=== PATIENT | female | born 1960 | race Caucasian/White ===

== ENCOUNTER → 2019-05-10 | Outpatient (CLI) | payer OTHER | LOC: RAD 10:21 | DX: Z12.31 Encounter for screening mammogram for malignant neoplasm of breast (principal) ==

== ENCOUNTER → 2019-11-17 | Outpatient (CLI) | payer OTHER | LOC: CAT 08:52 → EDSTATUS 14:16 | DX: R55 Syncope and collapse (principal) ==

== ENCOUNTER → 2019-12-05 | Outpatient (CLI) | payer OTHER | LOC: MRI 10:47 | DX: R55 Syncope and collapse (principal) ==

== ENCOUNTER → 2020-01-09 | Outpatient (CLI) | payer OTHER ==
[2020-01-09 13:23] LABS: CHOLESTEROL 106 mg/dL (<200); HDL CHOLESTEROL 39 mg/dL (>40); LDL CHOLESTEROL 56 mg/dL (<100); TC:HDL 2.7 Ratio (Not establshd); TRIGLYCERIDE 58 mg/dL (<150); VLDL 12 mg/dL (<40)
== END ==
LOC: LAB 11:06
PROVIDERS: Family Medicine
DX: E03.4 Atrophy of thyroid (acquired) (principal)

== ENCOUNTER → 2020-01-12 | Outpatient (CLI) | payer OTHER | LOC: SJCVCIMAG 09:01 | DX: I07.1 Rheumatic tricuspid insufficiency (principal); R55 Syncope and collapse; E78.5 Hyperlipidemia, unspecified; E03.9 Hypothyroidism, unspecified ==

== ENCOUNTER → 2020-03-01 | Outpatient (CLI) | payer OTHER ==
[2020-03-01 11:46] LABS: ALBUMIN 4.3 g/dL (3.4-5.0); ANION GAP 5 mmol/L (7-16); BUN 13 mg/dL (7-18); CALCIUM 9.6 mg/dL (8.5-10.1); CHLORIDE 101 mmol/L (98-107); CHOLESTEROL 165 mg/dL (<200); CO2 32 mmol/L (21-32); CREATININE 0.9 mg/dL (0.6-1.0); GLUCOSE 101 mg/dL (74-106); HDL CHOLESTEROL 45 mg/dL (>40); LDL CHOLESTEROL 101 mg/dL (<100); POTASSIUM 4.3 mmol/L (3.5-5.1); SGOT 26 U/L (15-37); SGPT 45 U/L (30-65); SODIUM 138 mmol/L (136-145); TC:HDL 3.7 Ratio (Not establshd); TOTAL BILIRUBIN 0.5 mg/dL (0.2-1.0); TOTAL PROTEIN 7.5 g/dL (6.4-8.2); TRIGLYCERIDE 95 mg/dL (<150); VLDL 19 mg/dL (<40)
[2020-03-01 11:47] LABS: SERUM ASSESSMENT Clear
== END ==
LOC: LAB 02-01 12:28
PROVIDERS: ATTEND Family Medicine
DX: E78.2 Mixed hyperlipidemia (principal); E03.4 Atrophy of thyroid (acquired)

== ENCOUNTER → 2020-03-18 | Outpatient (CLI) | payer OTHER | LOC: LAB 10:46 | PROVIDERS: ATTEND Family Medicine | DX: U07.1 COVID-19 (principal) ==

== ENCOUNTER → 2020-04-12 | Outpatient (CLI) | payer OTHER ==
[2020-04-12 09:58] LABS: ANION GAP 6 mmol/L (7-16); BUN 18 mg/dL (7-18); CALCIUM 9.2 mg/dL (8.5-10.1); CHLORIDE 103 mmol/L (98-107); CHOLESTEROL 205 mg/dL (<200); CO2 30 mmol/L (21-32); CREATININE 0.9 mg/dL (0.6-1.0); GLUCOSE 103 mg/dL (74-106); HDL CHOLESTEROL 48 mg/dL (>40); LDL CHOLESTEROL 145 mg/dL (<100); POTASSIUM 4.2 mmol/L (3.5-5.1); SGOT 49 U/L (15-37); SGPT 82 U/L (30-65); SODIUM 139 mmol/L (136-145); TC:HDL 4.3 Ratio (Not establshd); TOTAL BILIRUBIN 0.4 mg/dL (0.2-1.0); TOTAL PROTEIN 7.2 g/dL (6.4-8.2); TRIGLYCERIDE 61 mg/dL (<150); VLDL 12 mg/dL (<40)
== END ==
LOC: LABMALL 09:03
PROVIDERS: ATTEND Family Medicine
DX: E78.2 Mixed hyperlipidemia (principal); E03.4 Atrophy of thyroid (acquired)

== ENCOUNTER → 2020-04-16 | Outpatient (CLI) | payer OTHER | LOC: BC 07:57 | PROVIDERS: ATTEND Family Medicine | DX: Z12.31 Encounter for screening mammogram for malignant neoplasm of breast (principal) ==

== ENCOUNTER → 2020-06-03 | Outpatient (CLI) | payer OTHER ==
[2020-06-03 13:07] LABS: BASOPHILS 0.5 % (0.0-2.0); EOSINOPHILS 0.3 % (0.0-3.0); HEMATOCRIT 43.5 % (37.0-47.0); HEMOGLOBIN 14.3 gm/dL (12.0-15.0); LYMPHOCYTES 42.6 % (24.0-44.0); MCHC 32.8 g/dL (28.0-37.0); MCV 91.4 fL (80.0-100.0); MONOCYTES 4.9 % (1.0-8.0); PLATELET COUNT 175 thou/uL (150-400); POLYS 51.7 % (36.0-66.0); RBC 4.76 mil/uL (4.20-5.00); RDW 13.5 % (10.5-14.5); WBC 3.8 thou/uL (4.0-11.0)
[2020-06-03 13:23] LABS: ALBUMIN 4.3 g/dL (3.4-5.0); ANION GAP 9 mmol/L (7-16); BUN 19 mg/dL (7-18); CALCIUM 9.3 mg/dL (8.5-10.1); CHLORIDE 104 mmol/L (98-107); CHOLESTEROL 230 mg/dL (<200); CO2 29 mmol/L (21-32); CREATININE 0.9 mg/dL (0.6-1.0); GLUCOSE 90 mg/dL (74-106); HDL CHOLESTEROL 64 mg/dL (>40); LDL CHOLESTEROL 149 mg/dL (<100); POTASSIUM 4.1 mmol/L (3.5-5.1); SGOT 32 U/L (15-37); SGPT 43 U/L (30-65); SODIUM 142 mmol/L (136-145); TC:HDL 3.6 Ratio (Not establshd); TOTAL BILIRUBIN 0.6 mg/dL (0.2-1.0); TOTAL PROTEIN 7.4 g/dL (6.4-8.2); TRIGLYCERIDE 88 mg/dL (<150); VLDL 18 mg/dL (<40)
[2020-06-04 01:06] LABS: GLYCOHEMOGLOBIN (HGB A1C) 5.8 % (4.8-5.6)
== END ==
LOC: LAB 11:50
PROVIDERS: ATTEND Internal Medicine
DX: Z00.00 Encounter for general adult medical examination without abnormal findings (principal); E03.9 Hypothyroidism, unspecified; I10 Essential (primary) hypertension; R73.03 Prediabetes; E55.9 Vitamin D deficiency, unspecified; E78.2 Mixed hyperlipidemia

== ENCOUNTER → 2020-06-05 | Outpatient (CLI) | payer OTHER ==
[2020-06-05 12:37] LABS: URINE BILIRUBIN NEGATIVE (Negative); URINE BLOOD NEGATIVE (Negative); URINE CLARITY CLEAR; URINE COLOR YELLOW; URINE GLUCOSE-RANDOM* NEGATIVE (Negative); URINE KETONES NEGATIVE (Negative); URINE NITRITE-REFLEX NEGATIVE (Negative); URINE PROTEIN (DIPSTICK) NEGATIVE (Negative); URINE UROBILINOGEN 0.2 E.U./dl (0.2-1.0)
[2020-06-05 12:41] LABS: URINE LEUKOCYTES-REFLEX 2+ (Negative)
[2020-06-05 12:49] LABS: CASTS None Seen /LPF (None Seen); SQUAMOUS None Seen /LPF (0-3)
[2020-06-05 12:50] LABS: BACTERIA-REFLEX 1-9 Few /HPF (None Seen); CRYSTALS None Seen /LPF (None Seen); URINE RBC None Seen /HPF (0-2); URINE WBC-REFLEX 6-15 Few /HPF (0-5)
[2020-06-05 13:10] LABS: PROT/CREAT RATIO 0.3; URINE CREATININE-RANDOM* 33.3 mg/dL; URINE PROTEIN-RANDOM* 8.7 mg/dL (<11.9)
== END ==
LOC: LAB 11:27
PROVIDERS: ATTEND Family Medicine
DX: N18.2 Chronic kidney disease, stage 2 (mild) (principal)

== ENCOUNTER → 2020-06-17 | Outpatient (CLI) | payer OTHER | LOC: CAT 08:46 | PROVIDERS: ATTEND Family Medicine | DX: Z13.6 Encounter for screening for cardiovascular disorders (principal); I25.10 Atherosclerotic heart disease of native coronary artery without angina pectoris; E78.00 Pure hypercholesterolemia, unspecified ==

== ENCOUNTER → 2020-06-17 | Outpatient (CLI) | payer OTHER | LOC: ULTRA 06:55 | PROVIDERS: ATTEND Family Medicine | DX: N18.2 Chronic kidney disease, stage 2 (mild) (principal); R79.89 Other specified abnormal findings of blood chemistry; K76.89 Other specified diseases of liver ==

== ENCOUNTER → 2020-06-24 | Outpatient (CLI) | payer OTHER | LOC: MRI 12:26 | PROVIDERS: ATTEND Family Medicine | DX: D18.03 Hemangioma of intra-abdominal structures (principal); K76.89 Other specified diseases of liver ==

== ENCOUNTER → 2020-09-17 | Outpatient (CLI) | payer OTHER ==
[2020-09-17 09:58] LABS: ALBUMIN 3.9 g/dL (3.4-5.0); ANION GAP 7 mmol/L (7-16); BUN 20 mg/dL (7-18); CALCIUM 8.8 mg/dL (8.5-10.1); CHLORIDE 105 mmol/L (98-107); CO2 30 mmol/L (21-32); CREATININE 0.9 mg/dL (0.6-1.0); GLUCOSE 103 mg/dL (74-106); POTASSIUM 3.9 mmol/L (3.5-5.1); SGOT 19 U/L (15-37); SGPT 24 U/L (14-59); SODIUM 142 mmol/L (136-145); TOTAL BILIRUBIN 0.5 mg/dL (0.2-1.0); TOTAL PROTEIN 7.3 g/dL (6.4-8.2)
[2020-09-17 15:17] LABS: CHOLESTEROL 148 mg/dL (<200); HDL CHOLESTEROL 47 mg/dL (>40); LDL CHOLESTEROL 79 mg/dL (<100); TC:HDL 3.1 Ratio (Not establshd); TRIGLYCERIDE 110 mg/dL (<150); VLDL 22 mg/dL (<40)
== END ==
LOC: LAB 08:55 → MRI 09:10
PROVIDERS: ATTEND Family Medicine
DX: K76.89 Other specified diseases of liver (principal); D18.03 Hemangioma of intra-abdominal structures; E03.4 Atrophy of thyroid (acquired); E78.2 Mixed hyperlipidemia; E55.9 Vitamin D deficiency, unspecified

== ENCOUNTER → 2021-01-02 | Outpatient (CLI) | payer OTHER ==
[2021-01-02 11:39] LABS: ALBUMIN 3.9 g/dL (3.4-5.0); ANION GAP 8 mmol/L (7-16); BUN 19 mg/dL (7-18); CALCIUM 9.2 mg/dL (8.5-10.1); CHLORIDE 103 mmol/L (98-107); CHOLESTEROL 199 mg/dL (<200); CO2 29 mmol/L (21-32); CREATININE 0.9 mg/dL (0.6-1.0); GLUCOSE 108 mg/dL (74-106); HDL CHOLESTEROL 62 mg/dL (>40); LDL CHOLESTEROL 119 mg/dL (<100); POTASSIUM 4.3 mmol/L (3.5-5.1); SGOT 26 U/L (15-37); SGPT 34 U/L (30-65); SODIUM 140 mmol/L (136-145); TC:HDL 3.2 Ratio (Not establshd); TOTAL BILIRUBIN 0.6 mg/dL (0.2-1.0); TOTAL PROTEIN 7.4 g/dL (6.4-8.2); TRIGLYCERIDE 94 mg/dL (<150); VLDL 19 mg/dL (<40)
[2021-01-03 00:06] LABS: GLYCOHEMOGLOBIN (HGB A1C) 6.3 % (4.8-5.6)
== END ==
LOC: LAB 09:49
PROVIDERS: ATTEND Family Medicine
DX: E55.9 Vitamin D deficiency, unspecified (principal); E78.2 Mixed hyperlipidemia; E03.4 Atrophy of thyroid (acquired); K76.89 Other specified diseases of liver

== ENCOUNTER → 2021-06-11 | Outpatient (CLI) | payer OTHER ==
[2021-06-11 12:03] LABS: URINE BILIRUBIN NEGATIVE (Negative); URINE BLOOD NEGATIVE (Negative); URINE CLARITY CLEAR; URINE COLOR YELLOW; URINE GLUCOSE-RANDOM* NEGATIVE (Negative); URINE KETONES NEGATIVE (Negative); URINE NITRITE-REFLEX NEGATIVE (Negative); URINE PROTEIN (DIPSTICK) NEGATIVE (Negative); URINE SPECIFIC GRAVITY <= 1.005 (1.005-1.035); URINE UROBILINOGEN 0.2 E.U./dl (0.2-1.0)
[2021-06-11 12:04] LABS: URINE LEUKOCYTES-REFLEX 1+ (Negative)
[2021-06-11 12:11] LABS: ABSOLUTE NEUTROPHILS 2.3 thou/uL (1.4-8.2); BASOPHILS 0.4 % (0.0-2.0); EOSINOPHILS 0.7 % (0.0-3.0); HEMATOCRIT 44.5 % (37.0-47.0); HEMOGLOBIN 14.5 gm/dL (12.0-15.0); MCH 29.9 pg (26.0-34.0); MCHC 32.7 g/dL (28.0-37.0); MCV 91.6 fL (80.0-100.0); MONOCYTES 5.1 % (1.0-8.0); PLATELET COUNT 220 thou/uL (150-400); POLYS 55.8 % (36.0-66.0); RBC 4.86 mil/uL (4.20-5.00); RDW 12.8 % (10.5-14.5); WBC 4.2 thou/uL (4.0-11.0)
[2021-06-11 12:37] LABS: ALBUMIN 4.1 g/dL (3.4-5.0); ANION GAP 7 mmol/L (7-16); BUN 13 mg/dL (7-18); CALCIUM 9.1 mg/dL (8.5-10.1); CHLORIDE 107 mmol/L (98-107); CHOLESTEROL 185 mg/dL (<200); CO2 30 mmol/L (21-32); CREATININE 0.8 mg/dL (0.6-1.0); GLUCOSE 101 mg/dL (74-106); HDL CHOLESTEROL 48 mg/dL (>40); LDL CHOLESTEROL 109 mg/dL (<100); POTASSIUM 3.8 mmol/L (3.5-5.1); SGOT 29 U/L (15-37); SGPT 30 U/L (30-65); SODIUM 144 mmol/L (136-145); TC:HDL 3.9 Ratio (Not establshd); TOTAL BILIRUBIN 0.5 mg/dL (0.2-1.0); TOTAL PROTEIN 7.6 g/dL (6.4-8.2); TRIGLYCERIDE 143 mg/dL (<150); VLDL 29 mg/dL (<40)
[2021-06-11 12:56] LABS: CASTS None Seen /LPF (None Seen); SQUAMOUS 0-3 Few /LPF (0-3)
[2021-06-11 12:58] LABS: BACTERIA-REFLEX None Seen /HPF (None Seen); CRYSTALS None Seen /LPF (None Seen); URINE RBC None Seen /HPF (NONE SEEN); URINE WBC-REFLEX 0-5 Rare /HPF (0-5)
[2021-06-12 00:06] LABS: GLYCOHEMOGLOBIN (HGB A1C) 6.4 % (4.8-5.6)
== END ==
LOC: LAB 10:27
PROVIDERS: ATTEND Family Medicine
DX: Z00.00 Encounter for general adult medical examination without abnormal findings (principal); E55.9 Vitamin D deficiency, unspecified; E78.2 Mixed hyperlipidemia; E03.4 Atrophy of thyroid (acquired); N18.2 Chronic kidney disease, stage 2 (mild); R73.03 Prediabetes

== ENCOUNTER → 2021-07-01 | Outpatient (CLI) | payer OTHER | LOC: ULTRA 06-24 09:33 → RAD 08:38 | PROVIDERS: ATTEND Family Medicine | DX: Z12.31 Encounter for screening mammogram for malignant neoplasm of breast (principal); Z78.0 Asymptomatic menopausal state; D18.00 Hemangioma unspecified site; R04.2 Hemoptysis; M85.88 Other specified disorders of bone density and structure, other site; N64.89 Other specified disorders of breast; K76.0 Fatty (change of) liver, not elsewhere classified ==

== ENCOUNTER → 2021-09-10 | Outpatient (CLI) | payer OTHER ==
[2021-09-10 12:12] LABS: CHOLESTEROL 139 mg/dL (<200); HDL CHOLESTEROL 45 mg/dL (>40); LDL CHOLESTEROL 73 mg/dL (<100); TC:HDL 3.1 Ratio (Not establshd); TRIGLYCERIDE 107 mg/dL (<150); VLDL 21 mg/dL (<40)
[2021-09-11 01:06] LABS: GLYCOHEMOGLOBIN (HGB A1C) 6.1 % (4.8-5.6)
== END ==
LOC: RAD 11:16 → LAB 11:16
PROVIDERS: ATTEND Family Medicine
DX: Z00.00 Encounter for general adult medical examination without abnormal findings (principal)